=== PATIENT | male | born 1945 | race Caucasian/White ===

== ENCOUNTER 2017-03-12 01:54 | Inpatient (IN) | payer MEDICARE ==
[~2017-03-12] VITALS: Ht 182.9 cm; Wt 83.8 kg
[2017-03-12 03:30] LABS: BASOPHILS # (AUTO) 0.02 K/uL (0.00-0.20); BASOPHILS % (AUTO) 0.4 % (0.0-2.0); EOSINOPHILS # (AUTO) 0.01 K/uL (0.00-0.70); EOSINOPHILS % (AUTO) 0.09 % (1.0-6.0); HEMATOCRIT 39.2 % (41-53); HEMOGLOBIN 13.1 g/dL (13.5-17.5); LYMPHOCYTES % (AUTO) 44.6 % (22.0-44.0); MEAN CORPUSCULAR HEMOGLOBIN 33.5 pg (26.0-34.0); MEAN CORPUSCULAR HGB CONC 33.4 G/dL (31.0-37.0); MEAN CORPUSCULAR VOLUME 100 fL (80-100); MONOCYTES # (AUTO) 0.9 K/uL (0.1-1.0); MONOCYTES % (AUTO) 12.9 % (2.0-9.0); NEUTROPHILS # (AUTO) 2.8 K/uL (1.8-7.7); NEUTROPHILS % (AUTO) 42.1 % (40.0-70.0); PLATELET COUNT (AUTO) 328 K/uL (150-450); RED BLOOD CELL COUNT(AUTO) 3.91 MIL/uL (4.50-5.90); RED CELL DISTRIBUTION WIDTH 14.6 % (11.5-14.5); WHITE BLOOD COUNT (AUTO) 6.7 K/uL (4.5-11.0)
[2017-03-12 03:42] LABS: ANION GAP 7 mmol/L (8-16); CALCIUM, TOTAL 10.1 mg/dL (8.8-10.5); CARBON DIOXIDE 28 mmol/L (22-29); CHLORIDE 104 mmol/L (98-107); CREATININE 1.22 mg/dL (0.60-1.30); GLOMERULAR FILTR. RATE CALC 59 mL/min (>60); SODIUM SERUM 139 mmol/L (136-145); UREA NITROGEN, BLOOD 20 mg/dL (7-18)
[2017-03-12 03:50] LABS: ALANINE AMINOTRANSFERASE 24 U/L (12-78); ALBUMIN 3.5 g/dL (3.4-5.0); ASPARTATE AMINOTRANSFERASE 45 U/L (15-37); BILIRUBIN,TOTAL 0.4 mg/dL (0.1-1.0); TOTAL PROTEIN, SERUM 9.7 g/dL (6.4-8.2)
[2017-03-12 03:55] LABS: RBC MORPHOLOGY COMMENT ABNORMAL RBC MORPH
[2017-03-12] MEDS ORDERED: LORazepam 2 MG/ML VIAL IM ONE (04:30)
[2017-03-12] MEDS ORDERED: HALOPERIDOL LACTATE 5 MG/ML VIAL IM ONE (04:30)
[2017-03-12] MEDS ORDERED: DiphenhydrAMINE HCL 50 MG/ML VIAL IM ONE (04:30)
[2017-03-12] MEDS ORDERED: LORazepam 2 MG TABLET PO PRN (05:45)
[2017-03-12] MEDS ORDERED: ZOLPIDEM TARTRATE 10 MG TABLET PO PRN (05:45)
[2017-03-12] MEDS ORDERED: HALOPERIDOL 5 MG TABLET PO PRN (05:45)
[2017-03-12 06:05] LABS: CHOL/HDL RATIO 4.2 (4.2-7.3)
[2017-03-13 01:19] LABS: APPEARANCE,URINE TURBID (CLEAR); GLUCOSE, URINE (UA) NEGATIVE (NEGATIVE); KETONES,URINE NEGATIVE (NEGATIVE); LEUKOCYTE ESTERASE ,URINE LARGE (NEGATIVE); OCCULT BLOOD,URINE MODERATE (NEGATIVE); PH,URINE 5.5 (5.0-8.0); PROTEIN,URINE POS 1+ (NEGATIVE)
[2017-03-13 01:20] LABS: ADD UA MICROSCOPIC YES
[2017-03-13 01:21] LABS: SQUAMOUS EPITHELIAL CELL,UR Rare /LPF (None Seen); WBC,URINE >100 /HPF (0-5)
[2017-03-13] MEDS ORDERED: PNEUMOCOCCAL VACCINE POLYVALENT 0.5 ML VIAL [PPSV23] IM ONE (12:00)
[2017-03-13 13:26] VITALS: BP 132/84
[2017-03-13 17:36] VITALS: BP 115/59
[2017-03-13] MEDS ORDERED: CloNIDine HCL 0.1 MG TABLET PO PRN (18:00)
[2017-03-13] MEDS ORDERED: BACITRACIN 28.4 GM OINTMENT TP PRN (18:00)
[2017-03-13] MEDS ORDERED: ONDANSETRON HCL 4 MG TABLET PO PRN (18:00)
[2017-03-13] MEDS ORDERED: BENZOCAINE/MENTHOL LOZENGE MM PRN (18:00)
[2017-03-13] MEDS ORDERED: PETROLATUM,WHITE 71 GM JELLY TP PRN (18:00)
[2017-03-13] MEDS ORDERED: ACETAMINOPHEN 325 MG TABLET PO PRN (18:00)
[2017-03-13] MEDS ORDERED: LOPERAMIDE HCL 2 MG CAPSULE PO PRN (18:00)
[2017-03-13] MEDS ORDERED: ALBUTEROL SULFATE HFA 90 MCG/PUFF 8 GM INHALER IH PRN (18:00)
[2017-03-13] MEDS ORDERED: IBUPROFEN 600 MG TABLET PO PRN (18:00)
[2017-03-13] MEDS ORDERED: MAG HYDROX/AL HYDROX/SIMETH ES 30 ML SUSPENSION UDCUP PO PRN (18:00)
[2017-03-13] MEDS ORDERED: MAGNESIUM HYDROXIDE SUSPENSION 30 ML UDCUP PO PRN (18:00)
[2017-03-13] MEDS ORDERED: CIPROFLOXACIN HCL 250 MG TABLET PO SCH (18:11)
[2017-03-13] MEDS: OLANZapine 2.5 MG TABLET PO SCH (22:32)
[2017-03-14 06:36] VITALS: BP 108/76
[2017-03-14 08:36] VITALS: BP 117/64
[2017-03-14] MEDS: OLANZapine 2.5 MG TABLET PO SCH ×2 (08:49→17:10)
[2017-03-14] MEDS: OMEPRAZOLE 20 MG CAPSULE PO SCH (08:49)
[2017-03-14] MEDS: DOCUSATE SODIUM 100 MG CAPSULE PO SCH (08:50)
[2017-03-14] MEDS: CIPROFLOXACIN HCL 500 MG TABLET PO SCH ×2 (08:50→17:00)
[2017-03-14 16:18] VITALS: BP 115/65
[2017-03-15 02:23] VITALS: BP 118/60
[2017-03-15 08:31] VITALS: BP 103/59
[2017-03-15] MEDS: OLANZapine 2.5 MG TABLET PO SCH ×2 (09:17→16:39)
[2017-03-15] MEDS: DOCUSATE SODIUM 100 MG CAPSULE PO SCH (09:17)
[2017-03-15] MEDS: OMEPRAZOLE 20 MG CAPSULE PO SCH (09:17)
[2017-03-15] MEDS: CIPROFLOXACIN HCL 500 MG TABLET PO SCH ×2 (09:17→16:39)
[2017-03-15] MEDS ORDERED: LACTULOSE 20 GM/30 ML SOLUTION UDCUP PO SCH (10:00)
[2017-03-15 16:14] VITALS: BP 129/76
[2017-03-16 05:49] VITALS: BP 117/71
[2017-03-16 08:23] VITALS: BP 121/71
[2017-03-16] MEDS: OMEPRAZOLE 20 MG CAPSULE PO SCH (08:53)
[2017-03-16] MEDS: DOCUSATE SODIUM 100 MG CAPSULE PO SCH (08:53)
[2017-03-16] MEDS: OLANZapine 2.5 MG TABLET PO SCH ×2 (08:53→16:39)
[2017-03-16] MEDS: CIPROFLOXACIN HCL 500 MG TABLET PO SCH ×2 (08:53→16:39)
[2017-03-16] MEDS: NICOTINE 21 MG/24 HOUR PATCH TD SCH (13:09)
[2017-03-16 16:34] VITALS: BP 118/60
[2017-03-17 07:22] VITALS: BP 122/72
[2017-03-17] MEDS: DOCUSATE SODIUM 100 MG CAPSULE PO SCH (08:13)
[2017-03-17] MEDS: CIPROFLOXACIN HCL 500 MG TABLET PO SCH ×2 (08:14→16:59)
[2017-03-17] MEDS: NICOTINE 21 MG/24 HOUR PATCH TD SCH (08:14)
[2017-03-17] MEDS: OMEPRAZOLE 20 MG CAPSULE PO SCH (08:14)
[2017-03-17] MEDS: OLANZapine 2.5 MG TABLET PO SCH ×2 (08:14→17:00)
[2017-03-17 08:19] VITALS: BP 126/74
[2017-03-17 16:21] VITALS: BP 125/80
[2017-03-18 04:33] VITALS: BP 122/76
[2017-03-18 08:36] VITALS: BP 150/93
[2017-03-18] MEDS: OMEPRAZOLE 20 MG CAPSULE PO SCH (09:00)
[2017-03-18] MEDS: DOCUSATE SODIUM 100 MG CAPSULE PO SCH (09:00)
[2017-03-18] MEDS: NICOTINE 21 MG/24 HOUR PATCH TD SCH (09:00)
[2017-03-18] MEDS: OLANZapine 2.5 MG TABLET PO SCH ×2 (09:00→16:39)
[2017-03-18] MEDS: CIPROFLOXACIN HCL 500 MG TABLET PO SCH ×2 (09:00→16:39)
[2017-03-18 09:30] VITALS: BP 126/85
[2017-03-18 16:29] VITALS: BP 118/88
[2017-03-19 01:08] VITALS: BP 137/84
[2017-03-19 08:21] VITALS: BP 111/76
[2017-03-19] MEDS: CIPROFLOXACIN HCL 500 MG TABLET PO SCH ×2 (08:54→16:30)
[2017-03-19] MEDS: OMEPRAZOLE 20 MG CAPSULE PO SCH (08:54)
[2017-03-19] MEDS: OLANZapine 2.5 MG TABLET PO SCH ×2 (08:55→16:30)
[2017-03-19] MEDS: DOCUSATE SODIUM 100 MG CAPSULE PO SCH (08:55)
[2017-03-19] MEDS: NICOTINE 21 MG/24 HOUR PATCH TD SCH (08:55)
[2017-03-19 16:16] VITALS: BP 120/69
[2017-03-20 01:34] VITALS: BP 122/81
[2017-03-20 08:22] VITALS: BP 137/79
[2017-03-20] MEDS: DOCUSATE SODIUM 100 MG CAPSULE PO SCH (09:31)
[2017-03-20] MEDS: OLANZapine 2.5 MG TABLET PO SCH (09:31)
[2017-03-20] MEDS: OMEPRAZOLE 20 MG CAPSULE PO SCH (09:31)
[2017-03-20] MEDS: NICOTINE 21 MG/24 HOUR PATCH TD SCH (09:31)
[2017-03-20] MEDS: CIPROFLOXACIN HCL 500 MG TABLET PO SCH ×2 (09:31→16:46)
[2017-03-20 16:15] VITALS: BP 138/84
[2017-03-20] MEDS: OLANZapine 5 MG TABLET PO SCH (16:47)
[2017-03-21 06:14] VITALS: BP 138/95
[2017-03-21] MEDS: OMEPRAZOLE 20 MG CAPSULE PO SCH (09:00)
[2017-03-21] MEDS: CIPROFLOXACIN HCL 500 MG TABLET PO SCH (09:00)
[2017-03-21] MEDS: NICOTINE 21 MG/24 HOUR PATCH TD SCH (09:00)
[2017-03-21] MEDS: OLANZapine 5 MG TABLET PO SCH (09:00)
[2017-03-21] MEDS: DOCUSATE SODIUM 100 MG CAPSULE PO SCH (09:00)
[2017-03-21] MEDS ORDERED: OLAN5TAB2 PO (12:46)
[2017-03-21] MEDS ORDERED: DSS100 PO (12:47)
[2017-03-21] MEDS ORDERED: OMEP20 PO (12:47)
[2017-03-21 12:49] VITALS: BP 144/92
[2017-03-21] MEDS ORDERED: CIPR-278 PO (13:36)
== END 2017-03-21 14:20 | disposition home or self-care (01) | DRG 885 ==
LOC: EMS 01:57 → AHU 03-13 08:12 → B2X 03-13 18:00
PROVIDERS: ADMIT Psychiatry & Neurology Child & Adolescent Psychiatry; ATTEND Psychiatry & Neurology Child & Adolescent Psychiatry
DX: F29 Unspecified psychosis not due to a substance or known physiological condition (principal); J44.9 Chronic obstructive pulmonary disease, unspecified; F22 Delusional disorders; I10 Essential (primary) hypertension; F17.210 Nicotine dependence, cigarettes, uncomplicated; F41.9 Anxiety disorder, unspecified; G47.00 Insomnia, unspecified; K21.9 Gastro-esophageal reflux disease without esophagitis; K59.00 Constipation, unspecified; M19.90 Unspecified osteoarthritis, unspecified site; Z96.659 Presence of unspecified artificial knee joint; B96.20 Unspecified Escherichia coli [E. coli] as the cause of diseases classified elsewhere; Z78.1 Physical restraint status; Z91.14 Patient's other noncompliance with medication regimen; Z71.6 Tobacco abuse counseling; Z28.21 Immunization not carried out because of patient refusal
CPT/HCPCS: 87086; 96372; 99285; G0480; J1200; J1630; J2060

== ENCOUNTER 2017-05-28 11:03 | Emergency (ER) | payer MEDICARE ==
[~2017-05-28] VITALS: Ht 180.3 cm; Wt 81.0 kg
[~2017-05-28 11:03] MED LIST: CIPR-278 PO; DSS100 PO; OLAN5TAB2 PO; OMEP20 PO
[2017-05-28] MEDS ORDERED: METO50 PO (11:21)
[2017-05-28] MEDS ORDERED: LANS30CA55 PO (11:21)
[2017-05-28] MEDS ORDERED: AMLO5TAB66 PO (11:21)
[2017-05-28 12:23] LABS: BASOPHILS # (AUTO) 0.01 K/uL (0.00-0.20); BASOPHILS % (AUTO) 0.2 % (0.0-2.0); EOSINOPHILS # (AUTO) 0.01 K/uL (0.00-0.70); EOSINOPHILS % (AUTO) 0.21 % (1.0-6.0); HEMOGLOBIN 13.8 g/dL (13.5-17.5); LYMPHOCYTES # (AUTO) 1.5 K/uL (1.0-4.8); LYMPHOCYTES % (AUTO) 27.9 % (22.0-44.0); MEAN CORPUSCULAR HEMOGLOBIN 33.9 pg (26.0-34.0); MEAN CORPUSCULAR HGB CONC 32.1 G/dL (31.0-37.0); MEAN CORPUSCULAR VOLUME 105 fL (80-100); MONOCYTES # (AUTO) 0.6 K/uL (0.1-1.0); MONOCYTES % (AUTO) 11.1 % (2.0-9.0); NEUTROPHILS # (AUTO) 3.3 K/uL (1.8-7.7); NEUTROPHILS % (AUTO) 60.6 % (40.0-70.0); PLATELET COUNT (AUTO) 234 K/uL (150-450); RED BLOOD CELL COUNT(AUTO) 4.08 MIL/uL (4.50-5.90); RED CELL DISTRIBUTION WIDTH 20.3 % (11.5-14.5); WHITE BLOOD COUNT (AUTO) 5.5 K/uL (4.5-11.0)
[2017-05-28 12:28] LABS: ANION GAP 11 mmol/L (8-16); CARBON DIOXIDE 19 mmol/L (22-29); CHLORIDE 105 mmol/L (98-107); CREATININE 1.45 mg/dL (0.60-1.30); GLOMERULAR FILTR. RATE CALC 48 mL/min (>60); POTASSIUM 4.4 mmol/L (3.5-5.1); SODIUM SERUM 135 mmol/L (136-145); UREA NITROGEN, BLOOD 23 mg/dL (7-18)
[2017-05-28 12:29] LABS: CALCIUM, TOTAL 8.8 mg/dL (8.8-10.5)
[2017-05-28 12:33] LABS: ALANINE AMINOTRANSFERASE 50 U/L (12-78); ALBUMIN 2.4 g/dL (3.4-5.0); ASPARTATE AMINOTRANSFERASE 298 U/L (15-37); BILIRUBIN,TOTAL 1.8 mg/dL (0.1-1.0); CREATINE KINASE, TOTAL 63 U/L (39-308); TOTAL PROTEIN, SERUM 8.3 g/dL (6.4-8.2)
[2017-05-28 12:53] LABS: B-TYPE NATRIURETIC PEPTIDE 181 pg/mL (0-100)
[2017-05-28 14:00] VITALS: BP 117/87
[2017-05-28 14:24] LABS: APPEARANCE,URINE CLOUDY (CLEAR); GLUCOSE, URINE (UA) NEGATIVE (NEGATIVE); KETONES,URINE NEGATIVE (NEGATIVE); LEUKOCYTE ESTERASE ,URINE NEGATIVE (NEGATIVE); OCCULT BLOOD,URINE NEGATIVE (NEGATIVE); PH,URINE 5.5 (5.0-8.0); PROTEIN,URINE SEE CONFIRM (NEGATIVE)
[2017-05-28 14:27] LABS: ADD UA MICROSCOPIC YES; SULFOSALICYLIC ACID,URINE 2+ (Negative)
[2017-05-28 14:28] LABS: RBC,URINE None Seen /HPF (0-2); WBC,URINE 0-2 /HPF (0-5)
[2017-05-28 14:29] LABS: SQUAMOUS EPITHELIAL CELL,UR Few /LPF (None Seen)
[2017-05-28 14:30] LABS: COARSE GRANULAR CASTS,URINE 0-2 /LPF (None Seen)
== END 2017-05-28 14:47 | disposition home or self-care (01) ==
LOC: EMS 11:04
DX: R60.0 Localized edema (principal); E88.09 Other disorders of plasma-protein metabolism, not elsewhere classified; I10 Essential (primary) hypertension; F17.210 Nicotine dependence, cigarettes, uncomplicated
CPT/HCPCS: 93005; 99285

== ENCOUNTER 2017-05-30 13:54 | Inpatient (IN) | payer MEDICARE ==
[~2017-05-30] VITALS: Ht 182.9 cm; Wt 102.4 kg
[~2017-05-30 13:54] MED LIST changes: +AMLO5TAB66 PO; +LANS30CA55 PO; +METO50 PO; -OMEP20 PO
[2017-05-30 16:38] LABS: BASOPHILS % (AUTO) 0.4 % (0.0-2.0); EOSINOPHILS % (AUTO) 0.1 % (1.0-6.0); HEMATOCRIT 41.5 % (41-53); HEMOGLOBIN 13.7 g/dL (13.5-17.5); LYMPHOCYTES # (AUTO) 2.1 K/uL (1.0-4.8); LYMPHOCYTES % (AUTO) 35.6 % (22.0-44.0); MEAN CORPUSCULAR HEMOGLOBIN 34.3 pg (26.0-34.0); MEAN CORPUSCULAR VOLUME 104 fL (80-100); MONOCYTES # (AUTO) 0.6 K/uL (0.1-1.0); MONOCYTES % (AUTO) 10.4 % (2.0-9.0); NEUTROPHILS # (AUTO) 3.2 K/uL (1.8-7.7); NEUTROPHILS % (AUTO) 53.5 % (40.0-70.0); PLATELET COUNT (AUTO) 200 K/uL (150-450); RED BLOOD CELL COUNT(AUTO) 3.99 MIL/uL (4.50-5.90); RED CELL DISTRIBUTION WIDTH 19.9 % (11.5-14.5)
[2017-05-30 16:50] LABS: CALCIUM, TOTAL 8.9 mg/dL (8.8-10.5); CREATININE 1.58 mg/dL (0.60-1.30); POTASSIUM 4.8 mmol/L (3.5-5.1)
[2017-05-30 16:52] LABS: INR 1.7 (0.9-1.1); PROTHROMBIN TIME 18.1 SEC (9.4-11.6)
[2017-05-30 16:56] LABS: ALBUMIN 2.3 g/dL (3.4-5.0); BILIRUBIN,TOTAL 2.5 mg/dL (0.1-1.0)
[2017-05-30 17:34] LABS: APPEARANCE,URINE CLOUDY (CLEAR); GLUCOSE, URINE (UA) NEGATIVE (NEGATIVE); KETONES,URINE NEGATIVE (NEGATIVE); LEUKOCYTE ESTERASE ,URINE NEGATIVE (NEGATIVE); OCCULT BLOOD,URINE NEGATIVE (NEGATIVE); PH,URINE 5.5 (5.0-8.0); PROTEIN,URINE POS 1+ (NEGATIVE)
[2017-05-30 17:38] LABS: ADD UA MICROSCOPIC NO
[2017-05-30] MEDS ORDERED: 0.9% SODIUM CHLORIDE 10 ML SYRINGE IVP PRN (19:00)
[2017-05-30] MEDS ORDERED: ACETAMINOPHEN 325 MG TABLET PO PRN (19:00)
[2017-05-30 21:17] VITALS: BP 125/70
[2017-05-30] MEDS ORDERED: PNEUMOCOCCAL VACCINE POLYVALENT 0.5 ML VIAL [PPSV23] IM ONE (22:30)
[2017-05-30 23:09] VITALS: BP 109/74
[2017-05-31 05:00] VITALS: BP 108/82
[2017-05-31 06:53] LABS: GLUCOSE,POINT OF CARE 112 MG/DL (70-110)
[2017-05-31 07:06] VITALS: BP 126/91
[2017-05-31] MEDS ORDERED: CIPROFLOXACIN HCL 500 MG TABLET PO SCH (09:00)
[2017-05-31] MEDS ORDERED: OMEPRAZOLE 20 MG CAPSULE PO SCH (09:00)
[2017-05-31] MEDS ORDERED: LANSOPRAZOLE 30 MG SOLUBLE TABLET PO SCH (09:30)
[2017-05-31] MEDS ORDERED: ALBUTEROL SULFATE 2.5 MG/0.5 ML NEB SOLUTION NEB PRN (09:30)
[2017-05-31] MEDS ORDERED: IPRATROPIUM BROMIDE 0.5 MG/2.5 ML NEB SOLUTION NEB PRN (09:30)
[2017-05-31] MEDS ORDERED: HYDROCODONE/ACETAMINOPHEN 5-325 MG TABLET PO PRN (09:30)
[2017-05-31] MEDS ORDERED: ZOLPIDEM TARTRATE 5 MG TABLET PO PRN (09:30)
[2017-05-31] MEDS: OLANZapine 5 MG TABLET PO SCH ×2 (09:35→20:27)
[2017-05-31] MEDS: DOCUSATE SODIUM 100 MG CAPSULE PO SCH (09:35)
[2017-05-31] MEDS: ACETAMINOPHEN 325 MG TABLET PO PRN (09:35)
[2017-05-31] MEDS: METOPROLOL TARTRATE 50 MG TABLET PO SCH (09:35)
[2017-05-31] MEDS: AmLODIPine BESYLATE 5 MG TABLET PO SCH (09:35)
[2017-05-31] MEDS ORDERED: SODIUM CHLORIDE 0.9% 500 ML IV ONE (09:59)
[2017-05-31 10:33] LABS: INR 1.7 (0.9-1.1); PROTHROMBIN TIME 18.4 SEC (9.4-11.6)
[2017-05-31 11:08] VITALS: BP 108/78
[2017-05-31] MEDS: CefTRIAXone 1 GM/DEXTROSE 50 ML IV SCH (11:12)
[2017-05-31] MEDS: AZITHROMYCIN 250 MG in SODIUM CHLORIDE 0.9% 150 ML IV SCH (12:36)
[2017-05-31 14:32] LABS: APPEARANCE,UNSPUN,BODY FLUID HAZY (CLEAR)
[2017-05-31 14:33] LABS: COLOR,BODY FLUID YELLOW (LT YELLOW)
[2017-05-31 15:28] VITALS: BP 112/69
[2017-05-31 19:19] VITALS: BP 114/79
[2017-05-31 19:48] LABS: GLUCOSE,POINT OF CARE 145 MG/DL (70-110)
[2017-05-31 22:59] VITALS: BP 105/73
[2017-06-01 04:53] VITALS: BP 95/67
[2017-06-01 06:13] LABS: EOSINOPHILS % (AUTO) 0.4 % (1.0-6.0); HEMATOCRIT 39.6 % (41-53); HEMOGLOBIN 13.2 g/dL (13.5-17.5); LYMPHOCYTES # (AUTO) 1.9 K/uL (1.0-4.8); LYMPHOCYTES % (AUTO) 34.3 % (22.0-44.0); MEAN CORPUSCULAR HEMOGLOBIN 34.6 pg (26.0-34.0); MEAN CORPUSCULAR HGB CONC 33.3 G/dL (31.0-37.0); MEAN CORPUSCULAR VOLUME 104 fL (80-100); MONOCYTES # (AUTO) 0.6 K/uL (0.1-1.0); MONOCYTES % (AUTO) 11.1 % (2.0-9.0); NEUTROPHILS % (AUTO) 54.2 % (40.0-70.0); PLATELET COUNT (AUTO) 182 K/uL (150-450); RED BLOOD CELL COUNT(AUTO) 3.81 MIL/uL (4.50-5.90); RED CELL DISTRIBUTION WIDTH 19.8 % (11.5-14.5); WHITE BLOOD COUNT (AUTO) 5.6 K/uL (4.5-11.0)
[2017-06-01 06:42] LABS: GLUCOSE,POINT OF CARE 175 MG/DL (70-110)
[2017-06-01 06:43] LABS: GLUCOSE,POINT OF CARE 116 MG/DL (70-110)
[2017-06-01 06:54] LABS: ALBUMIN 2.2 g/dL (3.4-5.0); BILIRUBIN,TOTAL 1.8 mg/dL (0.1-1.0); CALCIUM, TOTAL 8.7 mg/dL (8.8-10.5); CREATININE 1.45 mg/dL (0.60-1.30); MAGNESIUM 1.9 mg/dL (1.80-2.40); PHOSPHORUS 2.3 mg/dL (2.5-4.9); POTASSIUM 3.9 mmol/L (3.5-5.1); TOTAL PROTEIN, SERUM 7.6 g/dL (6.4-8.2)
[2017-06-01 07:04] VITALS: BP 121/84
[2017-06-01 07:34] LABS: RBC MORPHOLOGY COMMENT ABNORMAL RBC MORPH
[2017-06-01] MEDS: DOCUSATE SODIUM 100 MG CAPSULE PO SCH (08:55)
[2017-06-01] MEDS: LANSOPRAZOLE 30 MG SOLUBLE TABLET PO SCH (08:55)
[2017-06-01] MEDS: METOPROLOL TARTRATE 50 MG TABLET PO SCH (08:55)
[2017-06-01] MEDS: AmLODIPine BESYLATE 5 MG TABLET PO SCH (08:55)
[2017-06-01] MEDS: OLANZapine 5 MG TABLET PO SCH ×2 (08:56→20:17)
[2017-06-01] MEDS: CefTRIAXone 1 GM/DEXTROSE 50 ML IV SCH (08:56)
[2017-06-01] MEDS: AZITHROMYCIN 250 MG in SODIUM CHLORIDE 0.9% 150 ML IV SCH (10:56)
[2017-06-01] MEDS: SODIUM BICARBONATE 650 MG TABLET PO SCH (10:56)
[2017-06-01] MEDS: POTASSIUM PHOS/SODIUM PHOS MIXTURE 1 POWDER PACKET PO SCH ×2 (10:56→20:26)
[2017-06-01 11:35] VITALS: BP 110/61
[2017-06-01] MEDS ORDERED: PNEUMOCOCCAL VACCINE POLYVALENT 0.5 ML VIAL [PPSV23] IM ONE (12:00)
[2017-06-01 15:23] VITALS: BP 102/69
[2017-06-01 18:42] LABS: GLUCOSE,POINT OF CARE 129 MG/DL (70-110)
[2017-06-01 18:42] LABS: GLUCOSE,POINT OF CARE 212 MG/DL (70-110)
[2017-06-01 19:15] VITALS: BP 118/86
[2017-06-01] MEDS ORDERED: DEXTROSE 50%-WATER 25 GM/50 ML SYRINGE IVP PRN (21:30)
[2017-06-01] MEDS: INSULIN ASPART 100 UNITS/ML SQ PRN (23:23)
[2017-06-01 23:24] VITALS: BP 148/75
[2017-06-01] MEDS: ACETAMINOPHEN 325 MG TABLET PO PRN (23:53)
[2017-06-02 04:17] LABS: GLUCOSE,POINT OF CARE 191 MG/DL (70-110)
[2017-06-02 05:00] VITALS: BP 108/69
[2017-06-02 05:17] LABS: IGG (IMMUNOFIXATION) 3135 mg/dL (700-1600)
[2017-06-02 06:17] LABS: GLUCOSE,POINT OF CARE 136 MG/DL (70-110)
[2017-06-02 07:38] VITALS: BP 129/99
[2017-06-02 08:14] LABS: ALBUMIN/GLOBULIN RAITO (PEP) 0.5 (0.7-1.7); ALPHA-1 GLOBULINS(PEP) 0.3 g/dL (0.0-0.4); ALPHA-2 GLOBULINS (PEP) 0.6 g/dL (0.4-1.0); M-SPIKE (PEP) Not Observed g/dL (Not Observed); TOTAL PROTEIN 7.6 g/dL (6.0-8.5)
[2017-06-02] MEDS: LANSOPRAZOLE 30 MG SOLUBLE TABLET PO SCH (09:23)
[2017-06-02] MEDS: SODIUM BICARBONATE 650 MG TABLET PO SCH (09:23)
[2017-06-02] MEDS: CefTRIAXone 1 GM/DEXTROSE 50 ML IV SCH (09:23)
[2017-06-02] MEDS: AmLODIPine BESYLATE 5 MG TABLET PO SCH (09:23)
[2017-06-02] MEDS: DOCUSATE SODIUM 100 MG CAPSULE PO SCH (09:24)
[2017-06-02] MEDS: METOPROLOL TARTRATE 50 MG TABLET PO SCH (09:24)
[2017-06-02] MEDS: OLANZapine 5 MG TABLET PO SCH ×2 (09:24→20:38)
[2017-06-02] MEDS: AZITHROMYCIN 250 MG in SODIUM CHLORIDE 0.9% 150 ML IV SCH (10:40)
[2017-06-02] MEDS: FUROSEMIDE 40 MG/4 ML VIAL IVP SCH (10:40)
[2017-06-02 11:33] VITALS: BP 109/72
[2017-06-02 12:48] LABS: GLUCOSE,POINT OF CARE 191 MG/DL (70-110)
[2017-06-02 13:05] LABS: TOTAL PROTEIN URINE 50.5 mg/dL (Not Estab.)
[2017-06-02] MEDS: INSULIN ASPART 100 UNITS/ML SQ PRN (13:15)
[2017-06-02 14:08] LABS: CALCIUM, TOTAL 8.1 mg/dL (8.8-10.5); CREATININE 1.52 mg/dL (0.60-1.30); MAGNESIUM 1.9 mg/dL (1.80-2.40); PHOSPHORUS 2.8 mg/dL (2.5-4.9); POTASSIUM 4.2 mmol/L (3.5-5.1)
[2017-06-02 16:22] VITALS: BP 115/70
[2017-06-02 19:22] VITALS: BP 102/73
[2017-06-02 20:12] LABS: GLUCOSE,POINT OF CARE 123 MG/DL (70-110)
[2017-06-02 21:12] LABS: GLUCOSE,POINT OF CARE 136 MG/DL (70-110)
[2017-06-02 23:38] VITALS: BP 93/67
[2017-06-03 04:41] VITALS: BP 106/75
[2017-06-03 05:37] LABS: COMPLEMENT C3 136 mg/dL (82-167); COMPLEMENT C4 34 mg/dL (14-44)
[2017-06-03 05:37] LABS: GLUCOSE,POINT OF CARE 125 MG/DL (70-110)
[2017-06-03 06:03] LABS: CALCIUM, TOTAL 8.5 mg/dL (8.8-10.5); CREATININE 1.41 mg/dL (0.60-1.30); MAGNESIUM 1.9 mg/dL (1.80-2.40); PHOSPHORUS 2.7 mg/dL (2.5-4.9); POTASSIUM 3.8 mmol/L (3.5-5.1)
[2017-06-03 08:21] VITALS: BP 96/75
[2017-06-03] MEDS: METOPROLOL TARTRATE 50 MG TABLET PO SCH (08:28)
[2017-06-03] MEDS: SODIUM BICARBONATE 650 MG TABLET PO SCH (08:28)
[2017-06-03] MEDS: FUROSEMIDE 40 MG/4 ML VIAL IVP SCH ×2 (08:28→20:16)
[2017-06-03] MEDS: AmLODIPine BESYLATE 5 MG TABLET PO SCH (08:28)
[2017-06-03] MEDS: DOCUSATE SODIUM 100 MG CAPSULE PO SCH (08:28)
[2017-06-03] MEDS: OLANZapine 5 MG TABLET PO SCH ×2 (08:28→20:16)
[2017-06-03] MEDS: LANSOPRAZOLE 30 MG SOLUBLE TABLET PO SCH (08:28)
[2017-06-03] MEDS: CefTRIAXone 1 GM/DEXTROSE 50 ML IV SCH (10:10)
[2017-06-03 11:50] VITALS: BP 90/62
[2017-06-03 11:58] LABS: GLUCOSE,POINT OF CARE 155 MG/DL (70-110)
[2017-06-03] MEDS: AZITHROMYCIN 250 MG in SODIUM CHLORIDE 0.9% 150 ML IV SCH (12:03)
[2017-06-03 14:32] LABS: APPEARANCE,URINE CLOUDY (CLEAR); GLUCOSE, URINE (UA) NEGATIVE (NEGATIVE); KETONES,URINE NEGATIVE (NEGATIVE); LEUKOCYTE ESTERASE ,URINE NEGATIVE (NEGATIVE); OCCULT BLOOD,URINE NEGATIVE (NEGATIVE); PH,URINE 5.5 (5.0-8.0); PROTEIN,URINE TRACE (NEGATIVE)
[2017-06-03 14:37] LABS: ADD UA MICROSCOPIC YES
[2017-06-03 14:43] LABS: RBC,URINE None Seen /HPF (0-2); SQUAMOUS EPITHELIAL CELL,UR Few /LPF (None Seen); WBC,URINE 0-2 /HPF (0-5)
[2017-06-03 15:00] VITALS: BP 93/62
[2017-06-03] MEDS: INSULIN ASPART 100 UNITS/ML SQ PRN (17:36)
[2017-06-03 18:57] LABS: GLUCOSE COMMENT 1 Received Meds; GLUCOSE,POINT OF CARE 148 MG/DL (70-110)
[2017-06-03 20:06] VITALS: BP 117/70
[2017-06-03] MEDS: ENOXAPARIN SODIUM 30 MG/0.3 ML PF SYRINGE SQ SCH (20:17)
[2017-06-03 22:02] LABS: GLUCOSE,POINT OF CARE 175 MG/DL (70-110)
[2017-06-04 04:47] VITALS: BP 100/64
[2017-06-04 06:28] LABS: GLUCOSE,POINT OF CARE 109 MG/DL (70-110)
[2017-06-04 07:32] LABS: CALCIUM, TOTAL 8.6 mg/dL (8.8-10.5); CREATININE 1.56 mg/dL (0.60-1.30); PHOSPHORUS 2.8 mg/dL (2.5-4.9)
[2017-06-04 07:34] VITALS: BP 94/67
[2017-06-04] MEDS: SODIUM BICARBONATE 650 MG TABLET PO SCH (08:34)
[2017-06-04] MEDS: DOCUSATE SODIUM 100 MG CAPSULE PO SCH (08:34)
[2017-06-04] MEDS: OLANZapine 5 MG TABLET PO SCH ×2 (08:34→20:19)
[2017-06-04] MEDS: LANSOPRAZOLE 30 MG SOLUBLE TABLET PO SCH (08:34)
[2017-06-04] MEDS: ENOXAPARIN SODIUM 30 MG/0.3 ML PF SYRINGE SQ SCH ×2 (08:35→20:19)
[2017-06-04] MEDS: FUROSEMIDE 40 MG/4 ML VIAL IVP SCH ×2 (09:28→20:19)
[2017-06-04] MEDS: CefTRIAXone 1 GM/DEXTROSE 50 ML IV SCH (09:28)
[2017-06-04] MEDS: ALBUMIN HUMAN 25%-25GM/100ML 100 ML IV SCH ×2 (10:18→21:58)
[2017-06-04] MEDS: AZITHROMYCIN 250 MG in SODIUM CHLORIDE 0.9% 150 ML IV SCH (11:26)
[2017-06-04 11:45] VITALS: BP 104/69
[2017-06-04] MEDS: INSULIN ASPART 100 UNITS/ML SQ PRN (12:02)
[2017-06-04 12:07] LABS: GLUCOSE COMMENT 1 Received Meds; GLUCOSE,POINT OF CARE 159 MG/DL (70-110)
[2017-06-04 18:03] LABS: GLUCOSE,POINT OF CARE 104 MG/DL (70-110)
[2017-06-04 19:35] VITALS: BP 116/77
[2017-06-04 22:55] VITALS: BP 98/65
[2017-06-04 23:23] LABS: GLUCOSE,POINT OF CARE 136 MG/DL (70-110)
[2017-06-05 04:45] VITALS: BP 99/77
[2017-06-05 07:17] VITALS: BP 107/72
[2017-06-05 09:07] LABS: CALCIUM, TOTAL 8.8 mg/dL (8.8-10.5); CREATININE 1.57 mg/dL (0.60-1.30); MAGNESIUM 1.9 mg/dL (1.80-2.40); POTASSIUM 4.5 mmol/L (3.5-5.1)
[2017-06-05 10:08] LABS: GLUCOSE,POINT OF CARE 106 MG/DL (70-110)
[2017-06-05] MEDS: SODIUM BICARBONATE 650 MG TABLET PO SCH (11:09)
[2017-06-05] MEDS: ENOXAPARIN SODIUM 30 MG/0.3 ML PF SYRINGE SQ SCH ×2 (11:09→20:35)
[2017-06-05] MEDS: LANSOPRAZOLE 30 MG SOLUBLE TABLET PO SCH (11:09)
[2017-06-05] MEDS: FUROSEMIDE 40 MG/4 ML VIAL IVP SCH ×2 (11:09→20:35)
[2017-06-05] MEDS: DOCUSATE SODIUM 100 MG CAPSULE PO SCH (11:09)
[2017-06-05] MEDS: OLANZapine 5 MG TABLET PO SCH ×2 (11:10→20:35)
[2017-06-05] MEDS: METOPROLOL TARTRATE 25 MG TABLET PO SCH (11:10)
[2017-06-05] MEDS: CefTRIAXone 1 GM/DEXTROSE 50 ML IV SCH (11:11)
[2017-06-05] MEDS: ALBUMIN HUMAN 25%-25GM/100ML 100 ML IV SCH ×2 (11:11→23:51)
[2017-06-05 11:21] VITALS: BP 101/76
[2017-06-05] MEDS: ACETAMINOPHEN 325 MG TABLET PO PRN (11:57)
[2017-06-05 14:28] LABS: GLUCOSE,POINT OF CARE 137 MG/DL (70-110)
[2017-06-05] MEDS: AZITHROMYCIN 250 MG in SODIUM CHLORIDE 0.9% 150 ML IV SCH (14:28)
[2017-06-05 16:12] VITALS: BP 108/69
[2017-06-05 18:38] LABS: GLUCOSE,POINT OF CARE 129 MG/DL (70-110)
[2017-06-05 20:14] VITALS: BP 113/69
[2017-06-05] MEDS: INSULIN ASPART 100 UNITS/ML SQ PRN (20:36)
[2017-06-05 21:42] LABS: GLUCOSE,POINT OF CARE 141 MG/DL (70-110)
[2017-06-06 00:20] VITALS: BP 103/75
[2017-06-06 04:43] VITALS: BP 108/75
[2017-06-06 07:18] LABS: GLUCOSE,POINT OF CARE 110 MG/DL (70-110)
[2017-06-06 07:30] VITALS: BP 112/75
[2017-06-06] MEDS: DOCUSATE SODIUM 100 MG CAPSULE PO SCH (08:52)
[2017-06-06] MEDS: FUROSEMIDE 40 MG/4 ML VIAL IVP SCH ×2 (08:52→21:01)
[2017-06-06] MEDS: LANSOPRAZOLE 30 MG SOLUBLE TABLET PO SCH (08:53)
[2017-06-06] MEDS: SODIUM BICARBONATE 650 MG TABLET PO SCH (08:53)
[2017-06-06] MEDS: OLANZapine 5 MG TABLET PO SCH ×2 (08:53→20:38)
[2017-06-06] MEDS: METOPROLOL TARTRATE 25 MG TABLET PO SCH (08:53)
[2017-06-06] MEDS: ENOXAPARIN SODIUM 30 MG/0.3 ML PF SYRINGE SQ SCH ×2 (08:53→20:38)
[2017-06-06] MEDS: CefTRIAXone 1 GM/DEXTROSE 50 ML IV SCH (08:54)
[2017-06-06] MEDS: ALBUMIN HUMAN 25%-25GM/100ML 100 ML IV SCH ×2 (08:54→22:05)
[2017-06-06] MEDS: AZITHROMYCIN 250 MG in SODIUM CHLORIDE 0.9% 150 ML IV SCH (10:53)
[2017-06-06 11:41] VITALS: BP 101/78
[2017-06-06 12:03] LABS: GLUCOSE COMMENT 1 Received Meds; GLUCOSE,POINT OF CARE 178 MG/DL (70-110)
[2017-06-06] MEDS: INSULIN ASPART 100 UNITS/ML SQ PRN (12:25)
[2017-06-06 15:10] VITALS: BP 106/66
[2017-06-06 17:33] LABS: GLUCOSE,POINT OF CARE 106 MG/DL (70-110)
[2017-06-06 20:20] VITALS: BP 91/71
[2017-06-07] VITALS (7 sets, daily range): BP systolic 101–116; BP diastolic 68–79
[2017-06-07 00:42] LABS: GLUCOSE,POINT OF CARE 138 MG/DL (70-110)
[2017-06-07 06:18] LABS: GLUCOSE,POINT OF CARE 106 MG/DL (70-110)
[2017-06-07 06:56] LABS: CREATININE 1.28 mg/dL (0.60-1.30); MAGNESIUM 1.8 mg/dL (1.80-2.40); PHOSPHORUS 2.2 mg/dL (2.5-4.9); POTASSIUM 3.3 mmol/L (3.5-5.1)
[2017-06-07] MEDS: DOCUSATE SODIUM 100 MG CAPSULE PO SCH (08:21)
[2017-06-07] MEDS: LANSOPRAZOLE 30 MG SOLUBLE TABLET PO SCH (08:21)
[2017-06-07] MEDS: SODIUM BICARBONATE 650 MG TABLET PO SCH (08:21)
[2017-06-07] MEDS: OLANZapine 5 MG TABLET PO SCH ×2 (08:21→20:14)
[2017-06-07] MEDS: ENOXAPARIN SODIUM 30 MG/0.3 ML PF SYRINGE SQ SCH ×2 (08:21→20:14)
[2017-06-07] MEDS: METOPROLOL TARTRATE 25 MG TABLET PO SCH (08:21)
[2017-06-07] MEDS: FUROSEMIDE 40 MG/4 ML VIAL IVP SCH ×2 (08:21→20:15)
[2017-06-07] MEDS: ALBUMIN HUMAN 25%-25GM/100ML 100 ML IV SCH ×2 (09:30→21:55)
[2017-06-07] MEDS: POTASSIUM CHL 10 MEQ/WATER 50 ML IV SCH ×2 (09:45→14:59)
[2017-06-07] MEDS: CefTRIAXone 1 GM/DEXTROSE 50 ML IV SCH (11:45)
[2017-06-07] MEDS: POTASSIUM PHOS/SODIUM PHOS MIXTURE 1 POWDER PACKET PO SCH ×2 (11:54→20:14)
[2017-06-07] MEDS: AZITHROMYCIN 250 MG in SODIUM CHLORIDE 0.9% 150 ML IV SCH (12:40)
[2017-06-07] MEDS: INSULIN ASPART 100 UNITS/ML SQ PRN (12:43)
[2017-06-07] MEDS ORDERED: SODIUM CHLORIDE 0.9% 500 ML IV ONE (13:59)
[2017-06-07 14:57] LABS: GLUCOSE,POINT OF CARE 189 MG/DL (70-110)
[2017-06-07 20:57] LABS: GLUCOSE,POINT OF CARE 154 MG/DL (70-110)
[2017-06-07 20:57] LABS: GLUCOSE,POINT OF CARE 164 MG/DL (70-110)
[2017-06-08 04:00] VITALS: BP 105/72
[2017-06-08 07:11] LABS: ALBUMIN 3.2 g/dL (3.4-5.0); BILIRUBIN,TOTAL 2.7 mg/dL (0.1-1.0); CREATININE 1.34 mg/dL (0.60-1.30); PHOSPHORUS 2.4 mg/dL (2.5-4.9); POTASSIUM 3.6 mmol/L (3.5-5.1); TOTAL PROTEIN, SERUM 7.3 g/dL (6.4-8.2)
[2017-06-08 07:30] VITALS: BP 100/77
[2017-06-08] MEDS: OLANZapine 5 MG TABLET PO SCH ×2 (08:42→19:59)
[2017-06-08] MEDS: SODIUM BICARBONATE 650 MG TABLET PO SCH (08:42)
[2017-06-08] MEDS: DOCUSATE SODIUM 100 MG CAPSULE PO SCH (08:42)
[2017-06-08] MEDS: LANSOPRAZOLE 30 MG SOLUBLE TABLET PO SCH (08:43)
[2017-06-08 08:44] LABS: GLUCOSE,POINT OF CARE 167 MG/DL (70-110)
[2017-06-08] MEDS: ENOXAPARIN SODIUM 30 MG/0.3 ML PF SYRINGE SQ SCH ×2 (08:44→19:58)
[2017-06-08] MEDS: ALBUMIN HUMAN 25%-25GM/100ML 100 ML IV SCH ×2 (10:36→21:00)
[2017-06-08] MEDS: CefTRIAXone 1 GM/DEXTROSE 50 ML IV SCH (11:56)
[2017-06-08] MEDS ORDERED: SODIUM CHLORIDE 0.9% 250 ML IV ONE (11:59)
[2017-06-08 12:00] VITALS: BP 115/59
[2017-06-08] MEDS: INSULIN ASPART 100 UNITS/ML SQ PRN ×2 (12:07→17:29)
[2017-06-08] MEDS: METOPROLOL TARTRATE 25 MG TABLET PO SCH (12:11)
[2017-06-08] MEDS: POTASSIUM PHOS/SODIUM PHOS MIXTURE 1 POWDER PACKET PO SCH ×2 (12:11→19:58)
[2017-06-08] MEDS: AZITHROMYCIN 250 MG in SODIUM CHLORIDE 0.9% 150 ML IV SCH (13:29)
[2017-06-08 15:06] VITALS: BP 110/79
[2017-06-08 16:55] LABS: GLUCOSE,POINT OF CARE 174 MG/DL (70-110)
[2017-06-08] MEDS: FUROSEMIDE 40 MG/4 ML VIAL IVP SCH ×2 (17:31→19:58)
[2017-06-08 19:48] VITALS: BP 109/75
[2017-06-08 21:10] LABS: GLUCOSE,POINT OF CARE 136 MG/DL (70-110)
[2017-06-08 23:29] VITALS: BP 109/73
[2017-06-08 23:43] LABS: GLUCOSE,POINT OF CARE 154 MG/DL (70-110)
[2017-06-09 04:21] VITALS: BP 106/62
[2017-06-09 07:04] VITALS: BP 104/66
[2017-06-09] MEDS: OLANZapine 5 MG TABLET PO SCH (08:34)
[2017-06-09] MEDS: DOCUSATE SODIUM 100 MG CAPSULE PO SCH (08:34)
[2017-06-09] MEDS: SODIUM BICARBONATE 650 MG TABLET PO SCH (08:34)
[2017-06-09] MEDS: ENOXAPARIN SODIUM 30 MG/0.3 ML PF SYRINGE SQ SCH (08:34)
[2017-06-09] MEDS: FUROSEMIDE 40 MG/4 ML VIAL IVP SCH (08:34)
[2017-06-09] MEDS: LANSOPRAZOLE 30 MG SOLUBLE TABLET PO SCH (08:35)
[2017-06-09] MEDS: METOPROLOL TARTRATE 25 MG TABLET PO SCH (08:35)
[2017-06-09 08:37] LABS: CALCIUM, TOTAL 9.3 mg/dL (8.8-10.5); CREATININE 1.37 mg/dL (0.60-1.30); PHOSPHORUS 2.6 mg/dL (2.5-4.9); POTASSIUM 4.1 mmol/L (3.5-5.1)
[2017-06-09] MEDS: ALBUMIN HUMAN 25%-25GM/100ML 100 ML IV SCH (09:31)
[2017-06-09] MEDS ORDERED: SODIUM CHLORIDE 0.9% 250 ML IV ONE (10:38)
[2017-06-09] MEDS: CefTRIAXone 1 GM/DEXTROSE 50 ML IV SCH (10:48)
[2017-06-09 11:04] VITALS: BP 103/70
[2017-06-09] MEDS: AZITHROMYCIN 250 MG in SODIUM CHLORIDE 0.9% 150 ML IV SCH (11:33)
[2017-06-09 15:33] VITALS: BP 117/70
[2017-06-09 16:54] LABS: GLUCOSE,POINT OF CARE 157 MG/DL (70-110)
== END 2017-06-09 17:00 | DRG 432 ==
LOC: EMS 13:55 → 6N 18:37
PROVIDERS: ADMIT Internal Medicine; ATTEND Internal Medicine
PROC: 0W9G3ZX Drainage of Peritoneal Cavity, Percutaneous Approach, Diagnostic (ICD-10-PCS; principal; 2017-05-31)
PROC: 3E0234Z Introduction of Serum, Toxoid and Vaccine into Muscle, Percutaneous Approach (ICD-10-PCS; 2017-06-01)
DX: K70.31 Alcoholic cirrhosis of liver with ascites (principal); J18.9 Pneumonia, unspecified organism; G93.41 Metabolic encephalopathy; N17.9 Acute kidney failure, unspecified; I82.401 Acute embolism and thrombosis of unspecified deep veins of right lower extremity; J90 Pleural effusion, not elsewhere classified; C22.0 Liver cell carcinoma; D68.9 Coagulation defect, unspecified; I12.9 Hypertensive chronic kidney disease with stage 1 through stage 4 chronic kidney disease, or unspecified chronic kidney disease; N18.3 Chronic kidney disease, stage 3 (moderate); E83.39 Other disorders of phosphorus metabolism; N28.1 Cyst of kidney, acquired; K76.9 Liver disease, unspecified; B19.20 Unspecified viral hepatitis C without hepatic coma; E11.9 Type 2 diabetes mellitus without complications; E87.6 Hypokalemia; F03.90 Unspecified dementia, unspecified severity, without behavioral disturbance, psychotic disturbance, mood disturbance, and anxiety; I10 Essential (primary) hypertension; K21.9 Gastro-esophageal reflux disease without esophagitis; Z96.653 Presence of artificial knee joint, bilateral; Z51.5 Encounter for palliative care; Z87.891 Personal history of nicotine dependence; Z23 Encounter for immunization
CPT/HCPCS: 49083; 71020; 71250; 74181; 76705; 76770; 76942; 82105; 82308; 82570; 82784; 82962; 83735; 83883; 84100; 84155; 84156; 84165; 84166; 86160; 86334; 86850; 86900; 86901; 87070; 87205; 89051; 90471; 93005; 93970; 97110; 97116; 97162; 97530; 99285; J0456; J0696; J1650; J1940; J3480; J7040; J7050; P9046